=== PATIENT | male | born 1985 | race Caucasian/White ===

== ENCOUNTER 2017-05-31 19:13 | Emergency (ER) | payer BC, MEDICAID ==
[2017-05-31] MEDS ORDERED: HYDROmorphone 1 MG/ML SYRINGE IVP STA (20:57)
[2017-05-31] MEDS ORDERED: CLINDAMYCIN 900 MG/50 ML 50 ML IV ONE (20:57)
--- NOTE | 2017-05-31 20:58 | ED Physician Documentation ---
PD HPI HEENT - Stated complaint Stated Complaint: FACIAL SWELLING - Chief complaint Chief Complaint: Heent - History obtained from History obtained from: Patient - History of Present Illness Timing - onset: Other (He has a known cavity that has been bothering him on and off but for last few days has significant pain of the right side of the face and swelling. No fevers.) Review of Systems Constitutional: reports: Reviewed and negative Eyes: reports: Reviewed and negative Nose: reports: Reviewed and negative Cardiac: reports: Reviewed and negative PD PAST MEDICAL HISTORY - Present Medications Home Medications: Ambulatory Orders Medication Instructions Recorded Confirmed Clindamycin [Cleocin] 300 mg PO Q6H 10 Days capsule 05/31/17 HYDROcod/ACETAM 5/325 [[place] 5/325] 1 - 2 ea PO Q6H PRN #15 tablet 05/31/17 - Allergies Allergies/Adverse Reactions: Allergies Allergy/AdvReac Type Severity Reaction Status Date / Time No Known Drug Allergies Allergy Verified 05/31/17 19:17 PD ED PE NORMAL - Vitals Vital signs reviewed: Yes - General General: Alert and oriented X 3, No acute distress - HEENT HEENT: Other (Small cavities of #7 and 8, with a palpable abscess on the gumline above #8 with facial swelling there but no trismus.) - Neck Neck: Supple, no meningeal sign, No bony TTP - Neuro Neuro: Alert and oriented X 3, Normal speech - Psych Psych: Normal mood, Normal affect Results - Vitals Vitals: Vital Signs - 24 hr 05/31/17 05/31/17 19:15 21:51 Temperature 36.8 C Heart Rate 128 H 98 Respiratory 18 16 Rate Blood Pressure 147/97 H 136/76 H O2 Saturation 97 99 Oxygen O2 Source Room air Procedures - Abscess I&D (location) dental Preparation: Lidocaine 1%, Other (buccal fold above #1/2) Incision: Incised with scalpel. No: Purulent drainage Other: Pt tolerated well, Dressing applied, Antibiotic prescribed PD MEDICAL DECISION MAKING - ED course ED course: He presents with an obvious abscess with facial cellulitis, and I&D was done but I did not really get much pus out. He was administered IV clindamycin here and Dilaudid with improvement in his pain and dental follow-up was advised. Departure - Departure Disposition: Home, Self Care Clinical Impression: Dental abscess Condition: Good Record reviewed to determine appropriate education?: Yes Instructions: ED Dental Abscess Facial Cellulitis Prescriptions: Clindamycin [Cleocin] 300 mg PO Q6H 10 Days capsule HYDROcod/ACETAM 5/325 [[place] 5/325] 1 - 2 ea PO Q6H PRN #15 tablet PRN Reason: Pain Comments: It is very important that she follow-up with a dentist. When it comes to dental problems like yours, the emergency department can only offer a short- term solution to your long-term problem. A couple of low cost options for dental care include: [facility] in [place], calls [phone] for an appointment Or [facility] in [place], call [phone] for an appointment. Do not drink or drive while taking narcotic pain medication. Note that many narcotic pain relievers also contain Tylenol/acetaminophen. Please ensure that your total dose of acetaminophen from all sources does not exceed 3 g (3000 mg) per day. You may get constipated while on this medication. Take a stool softener such as Colace twice a day while you are on it. Also add an [id number] laxative such as senna or MiraLAX on any day that you do not have a bowel movement. If you received a narcotic pain medication or sedative while in the emergency department, do not drive for the next 24 hours. Your blood pressure was elevated today on check into the emergency department. This does not mean that you have hypertension, it is a common phenomenon to come to the emergency department and have elevated blood pressure. I recommend that you see your primary care physician within the week to have it rechecked when you are feeling better.
[2017-05-31] MEDS ORDERED: BUFFERED LIDOCAINE 10 ML SYRINGE SUBQ STA (21:46)
[2017-05-31 21:52] VITALS: BP 136/76
[2017-05-31] MEDS ORDERED: HYDROcod/ACET 5/325 Prepack 6 PO STA (22:21)
== END 2017-05-31 22:28 | disposition home or self-care (01) ==
LOC: ED 19:13
DX: K04.7 Periapical abscess without sinus (principal); R03.0 Elevated blood-pressure reading, without diagnosis of hypertension
CPT/HCPCS: 41800; 96365; 96375; 99283; 99284; J1170